=== PATIENT | male | born 1970 | race Caucasian/White ===

== ENCOUNTER 2023-02-21 20:01 | Emergency (ER) | payer SELFPAY ==
[2023-02-21 20:08] VITALS: BP 163/91; PULSE 94; RESP 20; TEMP 36.4; O2SAT 98
== END 2023-02-22 00:11 | disposition left against medical advice (07) ==
LOC: ANHED 22:27
DX: R05.9 Cough, unspecified (principal)
CPT/HCPCS: 99199